=== PATIENT | female | born 2000 | race Caucasian/White ===

== ENCOUNTER 2024-12-05 03:57 | Inpatient (IN) | payer BC ==
[2024-12-05] MEDS ORDERED: Calcium Carbonate 500 MG Tab.Chew PO PRN (04:41)
[2024-12-05] MEDS ORDERED: Ondansetron 4 MG/2 ML SDV IVPUSH PRN (04:41)
[2024-12-05] MEDS ORDERED: Nalbuphine 10 MG/1 ML Vial IVPUSH PRN (04:41)
[2024-12-05] MEDS ORDERED: Sodium Chloride 0.9% 10 ML Syringe FLUSH PRN (04:41)
[2024-12-05] MEDS ORDERED: Lactated Ringers 1,000 ML IV SCH (04:45)
[2024-12-05] MEDS ORDERED: Oxytocin/0.9 % Sodium Chloride 30 UNIT/500 ML BAG IV SCH ×3 (04:45→09:47)
[2024-12-05 05:30] LABS: BASOPHILS ABSOLUTE AUTO 0.1 K/mm3 (0.0-0.2); BASOPHILS PERCENT AUTO 0.4 % (0.0-1.0); EOSINOPHILS PERCENT AUTO 0.2 % (0.0-6.0); HEMATOCRIT 41.2 % (37.0-47.0); HEMOGLOBIN 14.5 gm/dl (12.0-16.0); IMMATURE GRAN ABSOLUTE AUTO 0.13 K/mm3 (0.00-0.05); IMMATURE GRAN PERCENT AUTO 1.1 % (0.0-0.4); LYMPHOCYTES ABSOLUTE AUTO 1.5 K/mm3 (1.0-4.8); LYMPHOCYTES PERCENT AUTO 12.8 % (24.0-44.0); MEAN CORPUSCULAR HEMOGLOBIN 32.5 pg (28.0-32.0); MEAN CORPUSCULAR HGB CONC 35.2 g/dl (32.0-36.0); MEAN CORPUSCULAR VOLUME 92.4 fl (83.0-99.0); MEAN PLATELET VOLUME 10.7 fl (9.4-12.3); MONOCYTES ABSOLUTE AUTO 0.6 K/mm3 (0.0-0.8); MONOCYTES PERCENT AUTO 5.1 % (0.0-8.0); NEUTROPHILS ABSOLUTE AUTO 9.6 K/mm3 (1.8-7.7); NEUTROPHILS PERCENT AUTO 80.4 % (41.0-71.0); PLATELET COUNT,PLT 210 K/mm3 (150-400); RED BLOOD CELL COUNT 4.46 M/mm3 (4.10-5.30); WHITE BLOOD CELL COUNT,WBC 11.92 K/mm3 (3.9-11.3)
[2024-12-05] MEDS ORDERED: Magnesium Hydroxide 400 MG/5 ML Susp 30 ML Cup PO PRN (09:47)
[2024-12-05] MEDS ORDERED: Hydrocortisone Acetate 25 MG Supp RECTAL PRN (09:47)
[2024-12-05] MEDS ORDERED: Acetaminophen 325 MG Tab PO PRN (09:47)
[2024-12-05] MEDS: Benzocaine/Menthol 20%-0.5% Spray 78 GM Cannister TOP PRN (10:42)
[2024-12-05] MEDS: Witch Hazel Medicated Pads 40/Jar TOP PRN (10:42)
[2024-12-05] MEDS: Lidocaine 1% 50 ML MDV INJECT PRN (10:42)
[2024-12-05] MEDS: Ibuprofen 600 MG Tab PO SCH (14:34)
[2024-12-05] MEDS: Prenatal Multivitamin with Calcium/Folic Acid/Iron Tab PO SCH (14:34)
[2024-12-05] MEDS: Sodium Chloride 0.9% 10 ML Syringe FLUSH SCH (15:31)
[2024-12-06] MEDS: Docusate Sodium 100 MG Cap PO PRN (09:29)
== END 2024-12-07 11:11 | disposition home or self-care (01) | DRG 560 ==
LOC: JD.OBCHECK 03:57 → JD.OB 04:03 → JD.OBCHECK 04:41 → OBSVTOIN 08:37 → JD.OB 09:50
PROVIDERS: ADMIT Obstetrics & Gynecology; ATTEND Obstetrics & Gynecology
PROC: 10E0XZZ Delivery of Products of Conception, External Approach (ICD-10-PCS; principal; 2024-12-05)
PROC: 0KQM0ZZ Repair Perineum Muscle, Open Approach (ICD-10-PCS; 2024-12-05)
PROC: 0T9B70Z Drainage of Bladder with Drainage Device, Via Natural or Artificial Opening (ICD-10-PCS; 2024-12-05)
DX: O48.0 Post-term pregnancy (principal); Z37.0 Single live birth; O99.814 Abnormal glucose complicating childbirth; O70.1 Second degree perineal laceration during delivery; R33.9 Retention of urine, unspecified; O99.892 Other specified diseases and conditions complicating childbirth; Z3A.41 41 weeks gestation of pregnancy
CPT/HCPCS: 36415; 51701; 51702; 51798; 59025; 59409; 85025; 86592; 86850; 86900; 86901; A9270-GY; C1758